=== PATIENT | male | born 1955 | race Two or more races ===

== ENCOUNTER 2021-02-09 06:48 | Outpatient (CLI) | payer MEDICARE, MEDICAID | END 2021-02-09 23:59 | disposition home or self-care (01) | LOC: CFH 06:48 | PROVIDERS: ATTEND Internal Medicine Cardiovascular Disease | DX: I35.8 Other nonrheumatic aortic valve disorders (principal); R07.9 Chest pain, unspecified | CPT/HCPCS: 78452; 93017; 93306; A9502 ==

== ENCOUNTER → 2021-07-06 | Outpatient (CLI) | payer MEDICARE, MEDICAID | END | disposition home or self-care (01) | LOC: CFH 08:02 | PROVIDERS: ATTEND Registered Nurse | DX: M50.31 Other cervical disc degeneration, high cervical region (principal); M48.02 Spinal stenosis, cervical region; M79.601 Pain in right arm; R10.31 Right lower quadrant pain | CPT/HCPCS: 72050; 76857 ==